=== PATIENT | male | born 1990 | race Caucasian/White ===

== ENCOUNTER 2016-08-15 22:05 | Emergency (ER) | payer SELFPAY ==
--- NOTE | 2016-08-17 00:04 | ER ---
ADMIT: 08/15/2016 RM/LOC: ER [facility] MR#: [id number] [facility] [address] [place] [place], [place] [id number] FATOU BUSTOS [address] [place] [address] Emergency Room Report SEX: M AGE: 25 : 1990 DATE: 08/15/2016 TIME: 2204 Please refer to my T-sheet for complete H and P. HISTORY OF PRESENT ILLNESS: Briefly, the patient is a 25-year-old, brought in by paramedics 2-3 hours ago. He was smoking marijuana and took some "candy" that he is not for sure what was in it. His sister gave it to him. He said it was maybe had LSD. He feels odd. His heart rates run very fast. He is very anxious. He feels paranoid. He states he uses pot very frequently, but does not use other drugs that often. PHYSICAL EXAMINATION: VITAL SIGNS: Blood pressure 175/110, pulse 160, respirations 18, temp 97.8, saturating 100%. GENERAL: He is anxious. HEENT: Grossly normal. LUNGS: Clear. HEART: Tachy. ABDOMEN: Soft. SKIN: No rash. NEURO: He is cooperative, but very anxious. EMERGENCY DEPARTMENT COURSE: We did an EKG that revealed sinus tach, rate 162. No hyperacute changes. The paramedics had tried to use Adenocard on the vein with no improvement. I gave him Ativan, I was pretty aggressive originally with it. We used a total of 5 mg of IV Ativan. I gave him a total of 2 L of normal saline while here. He was feeling much better. His pulse was down below the 125 range. He was actually feeling somewhat sleepy. His mom was here. He was observed in the emergency department for around 3 hours. He had a ride home. I had a long discussion with him, he is ready for discharge. ASSESSMENT: 1. Acute substance abuse. 2. Anxiety. PLAN: Avoid substance of abuse. Return if worse. Fluids and rest. Follow up with Dr. Garcia as needed. Dawit Beasley MD/ davion JOB #: [id number] CC: Dawit Beasley MD, Attending Physician UNKNOWN, Family Physician ADMIT: 08/15/2016 RM/LOC: [facility] MR#: [id number] [id number] FATOU BUSTOS [address] [place] [address] Emergency Room Report SEX: M AGE: 25 : 1990 Pradeep Garcia MD
== END 2016-08-16 01:05 | disposition home or self-care (01) ==
LOC: ER 22:05
DX: F12.10 Cannabis abuse, uncomplicated (principal); F41.9 Anxiety disorder, unspecified